=== PATIENT | female | born 1930 | race Two or more races ===

== ENCOUNTER 2020-01-04 20:34 | Observation (INO) | payer MEDICARE, OTHER, MEDICAID ==
[~2020-01-04] VITALS: Ht 165.1 cm; Wt 71.7 kg
[2020-01-04 20:45] VITALS: BP 134/87
--- NOTE | 2020-01-04 21:09 | Emergency Room Report ---
History of Present Illness General Chief Complaint: Constipation Source: Patient Present Illness HPI Disclaimer: Please note that this report is being documented using DRAGON technology. This can lead to erroneous entry secondary to incorrect interpretation by the dictating instrument. HPI: 89-year-old female presents for evaluation of constipation and rectal pain. Symptoms present 2 days. The patient states she has difficulty sitting down due to rectal pain and this is relieved by laying flat or on her side. Denies rectal bleeding. She has not had a bowel movement 2 days. Continues to pass gas. Eating at normal. History of constipation. Receiving medications at nursing facility. Denies nausea, vomiting, diarrhea, fever, chills, dysuria or hematuria. PMH: Reviewed PSH: Reviewed Allergies: None reported Social Hx: Reviewed Allergies: Coded Allergies: No Known Allergies (Unverified , 01/04/20) COVID-19 Screening Contact w/high risk pt: No Experienced COVID-19 symptoms?: No COVID-19 Testing performed CONCRETE PUDDLER: No Review of Systems All Other Systems: negative except mentioned in HPI Physical Exam Vital Signs Date Time Temp Pulse Resp B/P (MAP) Pulse Ox O2 Delivery O2 Flow Rate FiO2 01/04/20 20:36 98.8 92 16 134/87 (103) 99 Room Air General: Awake and alert, no acute distress HEENT: NC/AT. EOMI. Cardiovascular: RRR. S1 and S2 normal. No murmur appreciated Resp: Normal work of breathing. No cough, wheezing or crackles appreciated Abdomen: Abdomen is soft, nondistended. Nontender Rectal: 2 large nonthrombosed prolapsed hemorrhoids. Dried blood in rectal vault. Rectal vault is empty. Skin: Intact. No abrasions, laceration or rash over the exposed skin MSK: Normal tone and bulk. Moving all extremities. No obvious deformity. Neuro: Awake and alert. Mentating appropriately. Medical Decision Making Diagnostic Impression: Primary Impression: Constipation Additional Impressions: Hemorrhoid prolapse Fecal impaction ER Course 89-year-old female presenting from detention for evaluation of constipat ion and rectal pain. She has 2 large prolapsed nonthrombosed hemorrhoids without active bleeding. Labs show slight reduced kidney function however otherwise within normal limits. X-ray of the abdomen shows dilated stool with increased fecal burden. Concern for impaction/severe constipation though the patient's rectal vault does not hold hard stool and therefore concern the impa ction might be further up the colon. Patient will be ordered an enema and GI cleanout. She will be admitted for further evaluation and treatment of these hemorrhoids and constipation/impaction. Dr. Esqueda is the accepting physician as he is the assigned hospitalist for the patient detention facility. Laboratory Tests Test 01/04/20 20:45 White Blood Count 13.1 K/UL (4.8-10.8) H Red Blood Count 4.66 M/UL (4.20-5.40) Hemoglobin 13.4 G/DL (12.0-16.0) Hematocrit 42.1 % (37.0-47.0) Mean Corpuscular Volume 90 FL (80-99) Mean Corpuscular Hemoglobin 28.8 PG (27.0-31.0) Mean Corpuscular Hemoglobin Concent 31.9 G/DL (32.0-36.0) L Red Cell Distribution Width 13.3 % (11.6-14.8) Platelet Count 289 K/UL (150-450) Mean Platelet Volume 6.0 FL (6.5-10.1) L Neutrophils (%) (Auto) % (45.0-75.0) Lymphocytes (%) (Auto) % (20.0-45.0) Monocytes (%) (Auto) % (1.0-10.0) Eosinophils (%) (Auto) % (0.0-3.0) Basophils (%) (Auto) % (0.0-2.0) Differential Total Cells Counted 100 Neutrophils % (Manual) 89 % (45-75) H Lymphocytes % (Manual) 7 % (20-45) L Monocytes % (Manual) 4 % (1-10) Eosinophils % (Manual) 0 % (0-3) Basophils % (Manual) 0 % (0-2) Band Neutrophils 0 % (0-8) Platelet Estimate Adequate Platelet Morphology Normal Red Blood Cell Morphology Normal Sodium Level 139 MMOL/L (136-145) Potassium Level 4.4 MMOL/L (3.5-5.1) Chloride Level 103 MMOL/L (98-107) Carbon Dioxide Level 26 MMOL/L (21-32) Anion Gap 10 mmol/L (5-15) Blood Urea Nitrogen 29 mg/dL (7-18) H Creatinine 1.4 MG/DL (0.55-1.30) H Estimated Glomerular Filtration Rate 35.4 mL/min (>60) Glucose Level 135 MG/DL (74-106) H Calcium Level 9.4 MG/DL (8.5-10.1) Total Bilirubin 0.2 MG/DL (0.2-1.0) Aspartate Amino Transferase (AST) 16 U/L (15-37) Alanine Aminotransferase (ALT) 14 U/L (12-78) Alkaline Phosphatase 115 U/L (46-116) Total Protein 7.8 G/DL (6.4-8.2) Albumin 4.1 G/DL (3.4-5.0) Globulin 3.7 g/dL Albumin/Globulin Ratio 1.1 (1.0-2.7) Last Vital Signs Date Time Temp Pulse Resp B/P (MAP) Pulse Ox O2 Delivery O2 Flow Rate FiO2 01/04/20 20:36 98.8 92 16 134/87 (103) 99 Room Air Disposition: ADMITTED INPATIENT Condition: Stable Referrals: NOT CHOSEN IPA/,REFERRING (PCP) Kd Flores MD Jan 04, 2020 21:09
[2020-01-04 21:21] LABS: CALCIUM 9.4 MG/DL (8.5-10.1); CREATININE 1.4 MG/DL (0.55-1.30); HEMATOCRIT 42.1 % (37.0-47.0); HEMOGLOBIN 13.4 G/DL (12.0-16.0); MEAN CORPUSCULAR VOLUME 90 FL (80-99); PLATELET COUNT 289 K/UL (150-450); POTASSIUM 4.4 MMOL/L (3.5-5.1); RED BLOOD COUNT 4.66 M/UL (4.20-5.40); RED CELL DISTRIBUTION WIDTH 13.3 % (11.6-14.8); WHITE BLOOD COUNT 13.1 K/UL (4.8-10.8)
[2020-01-04 21:28] LABS: ALBUMIN 4.1 G/DL (3.4-5.0); ALBUMIN/GLOBULIN RATIO 1.1 (1.0-2.7); BILIRUBIN,TOTAL 0.2 MG/DL (0.2-1.0)
[2020-01-04] MEDS ORDERED: ACETAMINOPHEN500 M3 ORAL (21:59)
[2020-01-04] MEDS ORDERED: CATAPRES0.1 MG ORAL (21:59)
[2020-01-04] MEDS ORDERED: FUROSEMIDE20 M1 ORAL (22:00)
[2020-01-04] MEDS ORDERED: AMLODIPINE BESY10 MG ORAL (22:00)
[2020-01-04] MEDS ORDERED: LOSARTAN POTASS50 MG ORAL (22:00)
[2020-01-04] MEDS ORDERED: POTASSIUM CHLO10 MEQ ORAL (22:02)
[2020-01-04] MEDS ORDERED: Fleet's Enema 133ml RECTAL ONE (22:15)
[2020-01-04] MEDS ORDERED: Magnesium Citrate Liq Btl ORAL ONE (22:15)
[2020-01-04 22:30] VITALS: BP 129/83
[2020-01-04 23:30] VITALS: BP 142/88
[2020-01-05] MEDS ORDERED: Morphine Sulfate 4mg/ml Inj (IV USE ONLY) IVP PRN
[2020-01-05] MEDS ORDERED: Morphine Sulfate 2mg/ml Inj(IV/IM USE ONLY) IVP PRN
[2020-01-05] MEDS ORDERED: Miralax 17gm pkt ORAL PRN (00:15)
[2020-01-05 04:00] VITALS: BP 107/72
[2020-01-05 06:54] LABS: BASOPHILS % (AUTO) 0.6 % (0.0-2.0); EOSINOPHILS % (AUTO) 1.1 % (0.0-3.0); HEMATOCRIT 35.1 % (37.0-47.0); HEMOGLOBIN 11.3 G/DL (12.0-16.0); LYMPHOCYTES % (AUTO) 12.3 % (20.0-45.0); MEAN CORPUSCULAR VOLUME 87 FL (80-99); MONOCYTES % (AUTO) 8.7 % (1.0-10.0); NEUTROPHILS % (AUTO) 77.3 % (45.0-75.0); PLATELET COUNT 252 K/UL (150-450); RED BLOOD COUNT 4.03 M/UL (4.20-5.40); RED CELL DISTRIBUTION WIDTH 12.7 % (11.6-14.8); WHITE BLOOD COUNT 7.5 K/UL (4.8-10.8)
[2020-01-05 06:58] LABS: CALCIUM 8.5 MG/DL (8.5-10.1); CREATININE 1.1 MG/DL (0.55-1.30); POTASSIUM 4.4 MMOL/L (3.5-5.1)
[2020-01-05 08:00] VITALS: BP 117/66
[2020-01-05] MEDS: Lactulose 20gm/30ml UDC ORAL SCH ×4 (08:34→17:23)
[2020-01-05] MEDS: Heparin 5000 units/ml inj SUBQ SCH ×2 (08:37→21:00)
[2020-01-05] MEDS: Losartan 50mg tab ORAL SCH (08:39)
--- NOTE | 2020-01-05 10:45 | Consultation ---
DATE OF CONSULTATION: 01/05/2020 GASTROENTEROLOGY CONSULTATION CONSULTING PHYSICIAN: Dagoberto Olsen MD. REFERRING PHYSICIAN: Roman Esqueda MD. CHIEF COMPLAINT: Constipation, stool impaction. HISTORY OF PRESENT ILLNESS: This is an 89-year-old speaking female coming from [facility] after having abdominal pain and constipation for two days. In the ER, the patient had a KUB, which showed evidence of stool, but high up in the colon, not in the rectal vault. The patient was complaining of constipation for two days. PAST MEDICAL HISTORY: Per chart, the patient has no prior medical problems. ALLERGIES: No known drug allergies. FAMILY HISTORY: Noncontributory. SOCIAL HISTORY: Currently lives in a [facility]. No history of tobacco, alcohol, or drug abuse. PAST SURGICAL HISTORY: None. REVIEW OF SYSTEMS: A 10-point review of systems was performed and is positive for constipation. PHYSICAL EXAMINATION: VITAL SIGNS: Temperature 97.8, pulse 86, respirations 20, blood pressure __/66. HEENT: Normocephalic and atraumatic. Sclerae are anicteric. NECK: Supple. No evidence of obvious lymphadenopathy. CARDIOVASCULAR: Regular rate and rhythm. Plus S1-S2. LUNGS: Clear to auscultation bilaterally. ABDOMEN: Positive bowel sounds. Soft and nontender. No rebound. No guarding. No peritoneal sign. EXTREMITIES: No cyanosis, no clubbing, no edema. LABORATORY DATA: Sodium 144, potassium 4.4, BUN 26, and creatinine 1.1. White count 7.5, hemoglobin 11, hematocrit 35, platelet count is 252,000. ASSESSMENT AND PLAN: An 89-year-old female with constipation. The patient already got a dose of enema. At this time, denies any abdominal pain. The patient is currently on lactulose and MiraLAX. I am going to add Colace. Monitor for BM. Consider KUB if no BM today. Also sent for thyroid panel to rule out hypothyroidism as a cause of constipation. In terms of anemia, normocytic, most probably secondary to chronic disease. Anemia workup ordered. I want to thank Dr. Esqueda for this kind referral. Dagoberto Olsen M.D. DR: MARIA E JOB#: [id number] CC:
[2020-01-05 12:00] VITALS: BP 104/67
--- NOTE | 2020-01-05 13:01 | History & Physical ---
History and Physical History & Physicial #[id number] Roman Esqueda MD Jan 05, 2020 13:01
[2020-01-05] MEDS ORDERED: MIRALAX119 GM ORAL (13:03)
[2020-01-05] MEDS ORDERED: LACTULOSE20 GM/301 ORAL (13:03)
--- NOTE | 2020-01-05 13:04 | Discharge Instructions ---
Discharge Instructions Discharge Instructions Follow up with: PCP and GI Call MD/Return to Hospital if: worsening constipation Diet: other Additional Diet Information: high fiber Resume Normal Activity?: Yes For Congestive Heart Failure Reminder Report to your physician any weight gain of 5 pounds or more in one week. Roman Esqueda MD Jan 05, 2020 13:04
--- NOTE | 2020-01-05 13:07 | Discharge Summary ---
Discharge Summary Hospital Course Date of Admission Jan 04, 2020 at 21:48 Date of Discharge Admitting Diagnosis fecal impaction JESSENIA Anderson is a 89 year old female who was admitted on Jan 04, 2020 at 21:48 for Fecal Impaction Seen by GI - Dr. Olsen started on miralax and lactulose with large bowel movement. patient feels much better her TSH was ~ 4 awaiting free T4 --> will have PCP followup --> if has hypothyroidism will need to be started on levothyroxine Discharge Condition Upon Discharge: stable Discharge Vital Signs Last Vital Signs Date Time Temp Pulse Resp B/P (MAP) Pulse Ox O2 Delivery O2 Flow Rate FiO2 01/05/20 12:00 98.2 80 20 104/67 (79) 95 01/05/20 09:00 Room Air Discharge Disposition Patient was discharged to assisted living Discharge Diagnoses: (1) Constipation (2) Fecal impaction Discharge Instructions Discharge Instructions Follow up with: PCP and GI Call MD/Return to Hospital if: worsening constipation Additional Diet Information: high fiber Roman Esqueda MD Jan 05, 2020 13:07
--- NOTE | 2020-01-05 13:30 | History and Physical Report ---
DATE OF ADMISSION: 01/04/2020 CHIEF COMPLAINT: Severe constipation and stool impaction. HISTORY OF PRESENT ILLNESS: This is an 89-year-old female who was brought in from assisted living facility with history of hypertension, peptic ulcer disease, iron-deficiency anemia, esophagitis, gastric ulcers who presents to the hospital for severe constipation and abdominal pain. In the ER, she had a KUB which showed evidence of stool but high up in the colon, not in the rectal vault. The patient's last bowel movement was two days ago. She denies any nausea or vomiting. She appeared impacted in the emergency room therefore was admitted for further workup. She denies any nausea, vomiting, chest pain. PAST MEDICAL HISTORY: Iron-deficiency anemia, esophagitis, gastric ulcer, history of GI bleed, history of pneumonia. SOCIAL HISTORY: The patient does not smoke, drink alcohol, or use any drugs. She resides at assisted living [facility]. FAMILY HISTORY: Noncontributory. ALLERGIES: No known drug allergies. MEDICATIONS: Reviewed in [employer]-link. REVIEW OF SYSTEMS: A 12-point review of systems negative except for pertinent positives as mentioned above. PHYSICAL EXAMINATION: VITAL SIGNS: Temperature 98.8, pulse is 92, respiratory rate 16, blood pressure 134/87, O2 saturation is 99% on room air. GENERAL: No acute distress. The patient is alert, awake, oriented x3. HEENT: Normocephalic/atraumatic. NECK: Supple. No JVD. LUNGS: Clear to auscultation bilaterally. No crackles, rhonchi, or rales. CARDIOVASCULAR: Regular rate and rhythm. Normal S1, S2. ABDOMEN: Soft, nontender, and nondistended. EXTREMITIES: No clubbing, cyanosis, or edema. LABORATORY AND DIAGNOSTIC DATA: CBC, white count of 7.5, hemoglobin 11.3, and platelet count of 252. BMP, sodium is 144, potassium 4.4, chloride 111, CO2 26, BUN is 26, creatinine is 1.1. TSH is 4.128. KUB shows stool impaction. ASSESSMENT: 1. Severe constipation with stool impaction. 2. History of peptic ulcer disease. 3. Anemia with history of iron-deficiency anemia in the past. 4. History of esophagitis. PLAN: 1. The patient started on lactulose and MiraLAX, the patient had a bowel movement earlier today. 2. GI consult. 3. The patient to have a free T4 checked as evaluation for hypothyroidism which could be a cause of her constipation. 4. Anemia workup. 5. The patient can be discharged back to her assisted living with follow up with her PCP. 6. Full Code. Roman Esqueda MD DR: Shane JOB#: [id number] CC:
--- NOTE | 2020-01-05 14:44 | Diagnostic Imaging Report ---
Indication: Abdominal pain Technique: Supine view of the abdomen Comparison: none Findings: There is evidence of considerable retained stool in the splenic flexure, descending colon, and to some extent the ascending colon. Bowel gas pattern is unremarkable. No masses or unusual calcifications Impression: Evidence of constipation. Correlate with clinical findings No acute process otherwise
[2020-01-05 16:00] VITALS: BP 114/70
[2020-01-05] MEDS: Docusate 100mg cap ORAL SCH (17:23)
[2020-01-05] MEDS: Hydrocortisone 25mg supp RECTAL SCH (17:23)
[2020-01-05 20:00] VITALS: BP 127/77
[2020-01-06] VITALS: BP 118/66
[2020-01-06 04:00] VITALS: BP 130/75
[2020-01-06 06:36] LABS: EOSINOPHILS % (AUTO) 6.7 % (0.0-3.0); HEMATOCRIT 34.9 % (37.0-47.0); HEMOGLOBIN 10.9 G/DL (12.0-16.0); LYMPHOCYTES % (AUTO) 24.6 % (20.0-45.0); MEAN CORPUSCULAR VOLUME 89 FL (80-99); MONOCYTES % (AUTO) 8.6 % (1.0-10.0); NEUTROPHILS % (AUTO) 59.1 % (45.0-75.0); PLATELET COUNT 225 K/UL (150-450); RED BLOOD COUNT 3.94 M/UL (4.20-5.40); RED CELL DISTRIBUTION WIDTH 13.1 % (11.6-14.8); WHITE BLOOD COUNT 4.9 K/UL (4.8-10.8)
[2020-01-06 07:17] LABS: BLOOD UREA NITROGEN 26 mg/dL (7-18); CALCIUM 8.2 MG/DL (8.5-10.1); CARBON DIOXIDE 27 MMOL/L (21-32); CHLORIDE 110 MMOL/L (98-107); CREATININE 1.1 MG/DL (0.55-1.30); SODIUM 142 MMOL/L (136-145)
[2020-01-06 07:35] LABS: % IRON SATURATION 10 % (15-50); IRON 32 ug/dL (50-175); TOTAL IRON BINDING CAPACITY 329 ug/dL (250-450)
[2020-01-06 08:00] VITALS: BP 97/58
[2020-01-06] MEDS: Hydrocortisone 25mg supp RECTAL SCH ×2 (08:34→17:42)
[2020-01-06] MEDS: Docusate 100mg cap ORAL SCH ×2 (08:34→17:43)
[2020-01-06] MEDS: Lactulose 20gm/30ml UDC ORAL SCH ×3 (08:34→17:43)
[2020-01-06] MEDS: Heparin 5000 units/ml inj SUBQ SCH ×2 (08:35→20:10)
[2020-01-06] MEDS: Losartan 50mg tab ORAL SCH (08:36)
--- NOTE | 2020-01-06 09:41 | General Progress Note ---
Subjective ROS Limited/Unobtainable: Yes Allergies: Coded Allergies: No Known Allergies (Unverified , 01/04/20) Objective Last 24 Hour Vital Signs Date Time Temp Pulse Resp B/P (MAP) Pulse Ox O2 Delivery O2 Flow Rate FiO2 01/06/20 09:00 Room Air 01/06/20 08:36 97/58 01/06/20 08:35 73 97/58 01/06/20 08:00 97.7 73 19 97/58 (71) 95 01/06/20 06:05 130/75 01/06/20 04:00 98.2 69 20 130/75 (93) 93 01/06/20 00:00 98.4 77 21 118/66 (83) 94 01/05/20 21:11 127/77 01/05/20 21:02 Room Air 01/05/20 20:00 97.9 79 20 127/77 (94) 95 01/05/20 16:00 98.1 77 20 114/70 (85) 95 01/05/20 13:18 104/67 01/05/20 12:00 98.2 80 20 104/67 (79) 95 Intake and Output 01/05/20 01/06/20 19:00 07:00 Intake Total 1080 ml Balance 1080 ml Intake Oral 1080 ml # Voids 40 2 # Bowel Movements 1 Laboratory Tests 01/06/20 05:00: Stool Occult Blood [Pending] 01/06/20 05:45: White Blood Count 4.9, Red Blood Count 3.94L, Hemoglobin 10.9L, Hematocrit 34.9L , Mean Corpuscular Volume 89, Mean Corpuscular Hemoglobin 27.7, Mean Corpuscular Hemoglobin Concent 31.2L, Red Cell Distribution Width 13.1, Platelet Count 225, Mean Platelet Volume 5.6L, Neutrophils (%) (Auto) 59.1, Lymphocytes (%) (Auto) 24.6, Monocytes (%) (Auto) 8.6, Eosinophils (%) (Auto) 6.7H, Basophils (%) (Auto) 1.0, Sodium Level 142, Potassium Level 4.0, Chloride Level 110H, Carbon Dioxide Level 27, Blood Urea Nitrogen 26H, Creatinine 1.1, Estimat Glomerular Filtration Rate 46.7, Glucose Level 90, Calcium Level 8.2L, Iron Level 32L, Total Iron Binding Capacity 329, Percent Iron Saturation 10L, Unsaturated Iron Binding 297, Vitamin B12 Level 244, Folate 9.1, Free Thyroxine 0.83 Height (Feet): 5 Height (Inches): 5.00 Weight (Pounds): 160 General Appearance: no apparent distress EENT: normal ENT inspection Neck: supple Cardiovascular: normal rate Respiratory/Chest: decreased breath sounds Abdomen: normal bowel sounds, non tender, soft Extremities: non-tender Assessment/Plan Assessment/Plan: 1. Severe constipation with stool impaction. 2. History of peptic ulcer disease. 3. Anemia with history of iron-deficiency anemia in the past. 4. History of esophagitis. fu H&H po iron bowel regimen being discharged needs out patient Dagoberto Israel MD Jan 06, 2020 09:41
[2020-01-06 12:00] VITALS: BP 112/74
[2020-01-06 16:00] VITALS: BP 123/69
--- NOTE | 2020-01-06 19:18 | Internal Med Progress Note ---
Subjective Physician Name Roman Esqueda Attending Physician Roman Esqueda MD Current Medications Medications (Trade) Dose Ordered Sig/Kamilla Route PRN Reason Start Time Stop Time Status Last Admin Dose Admin Acetaminophen (Tylenol) 650 mg Q4H PRN ORAL Mild Pain (Pain Scale 1-3) 01/05/20 00:00 02/04/20 00:00 01/05/20 08:36 Amlodipine Besylate (Norvasc) 10 mg DAILY ORAL 01/05/20 09:00 02/04/20 08:59 01/05/20 08:35 Clonidine HCl (Catapres Tab) 0.1 mg EVERY 8 HOURS ORAL 01/05/20 00:15 04/04/20 00:14 01/06/20 06:05 Dextrose (Dextrose 50%) 25 ml Q30M PRN IV Hypoglycemia 01/05/20 00:00 04/04/20 00:00 Dextrose (Dextrose 50%) 50 ml Q30M PRN IV Hypoglycemia 01/05/20 00:00 04/04/20 00:00 Docusate Sodium (Colace) 100 mg TWICE A DAY ORAL 01/05/20 18:00 02/04/20 17:59 01/06/20 08:34 Furosemide (Lasix) 20 mg DAILY ORAL 01/05/20 09:00 02/04/20 08:59 01/05/20 08:39 Heparin Sodium (Porcine) (Heparin 5000 units/ml) 5,000 units EVERY 12 HOURS SUBQ 01/05/20 09:00 02/19/20 08:59 01/06/20 08:35 Hydrocortisone (Anusol HC) 25 mg TWICE A DAY RECTAL 01/05/20 18:00 04/04/20 17:59 01/06/20 17:42 Lactulose (Cephulac) 30 gm THREE TIMES A DAY ORAL 01/05/20 09:00 02/04/20 08:59 01/06/20 12:38 Losartan Potassium (Cozaar) 100 mg DAILY ORAL 01/05/20 09:00 02/04/20 08:59 01/05/20 08:39 Morphine Sulfate (Morphine Sulfate) 2 mg Q6H PRN IVP Moderate Pain (Pain Scale 4-6) 01/05/20 00:00 01/12/20 00:00 Morphine Sulfate (Morphine Sulfate) 4 mg Q6H PRN IVP Severe Pain (Pain Scale 7-10) 01/05/20 00:00 01/12/20 00:00 Polyethylene Glycol (Miralax) 17 gm DAILY PRN ORAL Constipation 01/05/20 00:15 02/04/20 00:14 Allergies: Coded Allergies: No Known Allergies (Unverified , 01/04/20) All Systems: reviewed and negative except above - weakness Objective Last Vital Signs Date Time Temp Pulse Resp B/P (MAP) Pulse Ox O2 Delivery O2 Flow Rate FiO2 01/06/20 16:00 100.0 74 20 123/69 (87) 96 01/06/20 09:00 Room Air General Appearance: WD/WN, alert EENT: PERRL/EOMI, normal ENT inspection Neck: normal alignment, supple Cardiovascular: normal rate, regular rhythm Respiratory/Chest: lungs clear, normal breath sounds Abdomen: non tender, soft Extremities: normal range of motion, non-tender Laboratory Tests Test 01/06/20 05:00 01/06/20 05:45 Stool Occult Blood Negative (NEGATIVE) White Blood Count 4.9 K/UL (4.8-10.8) Red Blood Count 3.94 M/UL (4.20-5.40) L Hemoglobin 10.9 G/DL (12.0-16.0) L Hematocrit 34.9 % (37.0-47.0) L Mean Corpuscular Volume 89 FL (80-99) Mean Corpuscular Hemoglobin 27.7 PG (27.0-31.0) Mean Corpuscular Hemoglobin Concent 31.2 G/DL (32.0-36.0) L Red Cell Distribution Width 13.1 % (11.6-14.8) Platelet Count 225 K/UL (150-450) Mean Platelet Volume 5.6 FL (6.5-10.1) L Neutrophils (%) (Auto) 59.1 % (45.0-75.0) Lymphocytes (%) (Auto) 24.6 % (20.0-45.0) Monocytes (%) (Auto) 8.6 % (1.0-10.0) Eosinophils (%) (Auto) 6.7 % (0.0-3.0) H Basophils (%) (Auto) 1.0 % (0.0-2.0) Sodium Level 142 MMOL/L (136-145) Potassium Level 4.0 MMOL/L (3.5-5.1) Chloride Level 110 MMOL/L (98-107) H Carbon Dioxide Level 27 MMOL/L (21-32) Blood Urea Nitrogen 26 mg/dL (7-18) H Creatinine 1.1 MG/DL (0.55-1.30) Estimat Glomerular Filtration Rate 46.7 mL/min (>60) Glucose Level 90 MG/DL (74-106) Calcium Level 8.2 MG/DL (8.5-10.1) L Iron Level 32 ug/dL (50-175) L Total Iron Binding Capacity 329 ug/dL (250-450) Percent Iron Saturation 10 % (15-50) L Unsaturated Iron Binding 297 ug/dL (112-346) Vitamin B12 Level 244 PG/ML (193-986) Folate 9.1 NG/ML (8.6-58.9) Free Thyroxine 0.83 NG/DL (0.76-1.46) Microbiology Date/Time Source Procedure Growth Status 01/06/20 13:20 Nasopharynx SARS-CoV-2 RdRp Gene Assay - Final Complete Intake and Output 01/05/20 01/06/20 19:00 07:00 Intake Total 1080 ml Balance 1080 ml Intake Oral 1080 ml # Voids 40 2 # Bowel Movements 1 Assessment/Plan Assessment/Plan ASSESSMENT: 1. Severe constipation with stool impaction. 2. History of peptic ulcer disease. 3. Anemia with history of iron-deficiency anemia in the past. 4. History of esophagitis. 5. weakness 6. B12 deficiency 7. elevated TSH and normal Ft4 - subclinical hypothyroidism 8. hemorrhoids PLAN: 1. Medsurg 2. GI consult. on miralax and mag citrate 3. PT evaluation ---> DC to SNF tomorrow 4. Anemia workup. 5. B12 IM Daily 6. Full Code. 7. bowel regimen Roman Esqueda MD Jan 06, 2020 19:18
[2020-01-06 20:00] VITALS: BP 110/63
[2020-01-07 04:00] VITALS: BP 114/72
[2020-01-07 08:00] VITALS: BP 126/67
[2020-01-07] MEDS ORDERED: Vitamin B12 1000mcg/ml Inj IM SCH (08:00)
[2020-01-07] MEDS: Hydrocortisone 25mg supp RECTAL SCH (09:16)
[2020-01-07] MEDS: Losartan 50mg tab ORAL SCH (09:16)
[2020-01-07] MEDS: Heparin 5000 units/ml inj SUBQ SCH (09:20)
[2020-01-07 12:00] VITALS: BP 117/71
--- NOTE | 2020-01-07 14:05 | General Progress Note ---
Subjective ROS Limited/Unobtainable: Yes Allergies: Coded Allergies: No Known Allergies (Unverified , 01/04/20) Objective Last 24 Hour Vital Signs Date Time Temp Pulse Resp B/P (MAP) Pulse Ox O2 Delivery O2 Flow Rate FiO2 01/07/20 12:00 97.9 70 20 117/71 (86) 96 01/07/20 09:16 114/72 01/07/20 09:16 72 114/72 01/07/20 09:00 Room Air 01/07/20 08:00 98.6 72 20 126/67 (86) 96 01/07/20 04:58 114/72 01/07/20 04:00 97.9 72 18 114/72 (86) 95 01/06/20 22:02 Room Air 01/06/20 22:00 110/63 01/06/20 21:23 100.0 01/06/20 20:00 96.9 66 19 110/63 (79) 95 01/06/20 16:00 100.0 74 20 123/69 (87) 96 Intake and Output 01/06/20 01/07/20 19:00 07:00 Intake Total 1000 ml 250 ml Balance 1000 ml 250 ml Intake Oral 1000 ml 250 ml # Voids 3 # Bowel Movements 3 2 Height (Feet): 5 Height (Inches): 5.00 Weight (Pounds): 160 General Appearance: no apparent distress EENT: normal ENT inspection Neck: supple Cardiovascular: normal rate Respiratory/Chest: decreased breath sounds Abdomen: hypoactive bowel sounds Extremities: non-tender Assessment/Plan Assessment/Plan: 1. Severe constipation with stool impaction. 2. History of peptic ulcer disease. 3. Anemia with history of iron-deficiency anemia in the past. 4. History of esophagitis. fu H&H po iron bowel regimen off colace and lactulose given loose stools only on miralax now being discharged needs out patient Dagoberto Israel MD Jan 07, 2020 14:05
--- NOTE | 2020-01-07 15:41 | Internal Med Progress Note ---
Subjective Physician Name Roman Esqueda Attending Physician Roman Esqueda MD Current Medications Medications (Trade) Dose Ordered Sig/Kamilla Route PRN Reason Start Time Stop Time Status Last Admin Dose Admin Acetaminophen (Tylenol) 650 mg Q4H PRN ORAL Mild Pain (Pain Scale 1-3) 01/05/20 00:00 02/04/20 00:00 01/06/20 20:53 Amlodipine Besylate (Norvasc) 10 mg DAILY ORAL 01/05/20 09:00 02/04/20 08:59 01/07/20 09:16 Clonidine HCl (Catapres Tab) 0.1 mg EVERY 8 HOURS ORAL 01/05/20 00:15 04/04/20 00:14 01/06/20 06:05 Dextrose (Dextrose 50%) 25 ml Q30M PRN IV Hypoglycemia 01/05/20 00:00 04/04/20 00:00 Dextrose (Dextrose 50%) 50 ml Q30M PRN IV Hypoglycemia 01/05/20 00:00 04/04/20 00:00 Heparin Sodium (Porcine) (Heparin 5000 units/ml) 5,000 units EVERY 12 HOURS SUBQ 01/05/20 09:00 02/19/20 08:59 01/07/20 09:20 Hydrocortisone (Anusol HC) 25 mg TWICE A DAY RECTAL 01/05/20 18:00 04/04/20 17:59 01/07/20 09:16 Losartan Potassium (Cozaar) 100 mg DAILY ORAL 01/05/20 09:00 02/04/20 08:59 01/07/20 09:16 Morphine Sulfate (Morphine Sulfate) 2 mg Q6H PRN IVP Moderate Pain (Pain Scale 4-6) 01/05/20 00:00 01/12/20 00:00 Morphine Sulfate (Morphine Sulfate) 4 mg Q6H PRN IVP Severe Pain (Pain Scale 7-10) 01/05/20 00:00 01/12/20 00:00 Polyethylene Glycol (Miralax) 17 gm DAILY PRN ORAL Constipation 01/05/20 00:15 02/04/20 00:14 Allergies: Coded Allergies: No Known Allergies (Unverified , 01/04/20) All Systems: reviewed and negative except above - weakness Objective Last Vital Signs Date Time Temp Pulse Resp B/P (MAP) Pulse Ox O2 Delivery O2 Flow Rate FiO2 10/29/20 12:00 97.9 70 20 117/71 (86) 96 01/07/20 09:00 Room Air EENT: PERRL/EOMI, normal ENT inspection Neck: non-tender, normal alignment Cardiovascular: normal rate, regular rhythm Respiratory/Chest: lungs clear, normal breath sounds Abdomen: non tender, soft Extremities: normal range of motion, non-tender Edema: mild edema Microbiology Date/Time Source Procedure Growth Status 01/06/20 13:20 Nasopharynx SARS-CoV-2 RdRp Gene Assay - Final Complete 01/04/20 20:45 Rectum - Final NO CARBAPENEM-RESISTANT ENTEROBACTERI... Complete 01/04/20 20:45 Rectum VRE Culture - Final NO VANCOMYCIN RESISTANT ENTEROCOCCUS ... Complete 01/04/20 20:45 Nasal Nares MRSA Culture - Final Staphylococcus Aureus - Mrsa Complete Intake and Output 01/06/20 01/07/20 19:00 07:00 Intake Total 1000 ml 250 ml Balance 1000 ml 250 ml Intake Oral 1000 ml 250 ml # Voids 3 # Bowel Movements 3 2 Assessment/Plan Assessment/Plan ASSESSMENT: 1. Severe constipation with stool impaction. 2. History of peptic ulcer disease. 3. Anemia with history of iron-deficiency anemia in the past. 4. History of esophagitis. 5. weakness 6. B12 deficiency 7. elevated TSH and normal Ft4 - subclinical hypothyroidism 8. hemorrhoids PLAN: 1. Medsurg 2. GI consult. on miralax and mag citrate 3. PT evaluation 4. Anemia workup. 5. B12 IM daily x 1 wk 6. Full Code. 7. bowel regimen Roman More MD Jan 07, 2020 15:41
== END 2020-01-07 16:17 ==
LOC: EDBD 20:34 → EMR 21:06 → 4E 21:48 → INTOOBSV 21:48 → EDBEDREQ 22:12
DX: K56.41 Fecal impaction (principal); D63.8 Anemia in other chronic diseases classified elsewhere; R53.1 Weakness; E53.8 Deficiency of other specified B group vitamins; E03.8 Other specified hypothyroidism; K64.9 Unspecified hemorrhoids
CPT/HCPCS: 36415 ×3; 74018; 80048 ×2; 80053; 82270; 82607; 82746; 83540; 83550; 84439; 84443; 85007; 85025 ×3; 87081 ×3; 97110; 97116 ×2; 97162; 97530 ×2; 99285; G0378 ×2; J1644 ×3; J3420; U0002